=== PATIENT | female | born 1975 | race Asian ===

== ENCOUNTER 2016-11-22 10:53 | Outpatient (CLI) | payer OTHER | END 2016-11-22 23:00 | disposition home or self-care (01) | LOC: RAD 10:53 | DX: M79.671 Pain in right foot (principal); M79.89 Other specified soft tissue disorders ==

== ENCOUNTER 2017-08-19 09:56 | Outpatient (CLI) | payer OTHER | END 2017-08-19 19:03 | disposition home or self-care (01) | LOC: MAMMO 09:56 | DX: Z12.31 Encounter for screening mammogram for malignant neoplasm of breast (principal) ==

== ENCOUNTER 2017-09-27 13:25 | Outpatient (CLI) | payer OTHER | END 2017-09-27 19:12 | disposition home or self-care (01) | LOC: RAD 13:25 | DX: R05 Cough (principal) ==

== ENCOUNTER 2019-08-31 08:47 | Outpatient (CLI) | payer OTHER ==
[2019-08-31 09:18] LABS: POTASSIUM 3.8 mmol/L (3.6-5.2)
[2019-08-31 09:22] LABS: PLATELET COUNT 326 K/uL (152-353)
== END 2019-08-31 22:11 | disposition home or self-care (01) ==
LOC: LABW 08:47
PROVIDERS: Obstetrics & Gynecology Gynecologic Oncology
DX: Z01.811 Encounter for preprocedural respiratory examination (principal); D39.12 Neoplasm of uncertain behavior of left ovary
CPT/HCPCS: 36415; 80048; 85027; 93005

== ENCOUNTER 2019-10-12 11:20 | Emergency (ER) | payer OTHER ==
[~2019-10-12] VITALS: Ht 160 cm; Wt 95.3 kg
[2019-10-12 11:27] VITALS: TEMP 97.9
[2019-10-12 12:27] LABS: PLATELET COUNT 360 K/uL (152-353)
[2019-10-12 12:36] LABS: POTASSIUM 3.7 mmol/L (3.6-5.2)
[2019-10-12 15:32] VITALS: BP 141/90
== END 2019-10-12 15:32 | disposition home or self-care (01) ==
LOC: ED 11:20
PROVIDERS: Family Medicine
DX: N39.0 Urinary tract infection, site not specified (principal); D25.9 Leiomyoma of uterus, unspecified; R10.84 Generalized abdominal pain
CPT/HCPCS: 80053; 81000; 85027; 87086; 87088; 99283

== ENCOUNTER 2020-02-25 13:01 | Outpatient (CLI) | payer OTHER | END 2020-02-25 19:39 | disposition home or self-care (01) | LOC: MAMMO 13:01 | DX: Z12.31 Encounter for screening mammogram for malignant neoplasm of breast (principal) ==

== ENCOUNTER 2020-06-12 09:21 | Outpatient (CLI) | payer OTHER | END 2020-06-12 21:45 | disposition home or self-care (01) | LOC: US 09:21 | DX: R10.31 Right lower quadrant pain (principal) ==

== ENCOUNTER 2021-04-22 14:47 | Outpatient (CLI) | payer OTHER | END 2021-04-22 15:50 | disposition home or self-care (01) | LOC: US 14:47 | PROVIDERS: ATTEND Nurse Practitioner Primary Care | DX: R10.2 Pelvic and perineal pain (principal); R10.30 Lower abdominal pain, unspecified ==

== ENCOUNTER 2021-08-03 10:51 | Outpatient (CLI) | payer OTHER | END 2021-08-03 21:08 | disposition home or self-care (01) | LOC: US 10:51 | PROVIDERS: ATTEND Obstetrics & Gynecology Gynecologic Oncology | DX: D49.59 Neoplasm of unspecified behavior of other genitourinary organ (principal) ==

== ENCOUNTER 2021-08-13 14:25 | Outpatient (CLI) | payer OTHER | END 2021-08-13 20:20 | disposition home or self-care (01) | LOC: LABW 14:25 | PROVIDERS: ATTEND Obstetrics & Gynecology Gynecologic Oncology | DX: D49.59 Neoplasm of unspecified behavior of other genitourinary organ (principal); R97.1 Elevated cancer antigen 125 [CA 125] | CPT/HCPCS: 36415; 86304 ==

== ENCOUNTER 2021-10-05 08:49 | Outpatient (CLI) | payer OTHER | END 2021-10-05 19:17 | disposition home or self-care (01) | LOC: CT 08:49 | PROVIDERS: ATTEND Obstetrics & Gynecology Gynecologic Oncology | DX: C56.2 Malignant neoplasm of left ovary (principal); L02.11 Cutaneous abscess of neck | CPT/HCPCS: 36415; 82565; 84520; Q9963 ==

== ENCOUNTER 2022-02-11 08:58 | Outpatient (CLI) | payer OTHER | END 2022-02-11 21:24 | disposition home or self-care (01) | LOC: US 08:58 | PROVIDERS: ATTEND Nurse Practitioner Primary Care | DX: Z12.31 Encounter for screening mammogram for malignant neoplasm of breast (principal); R10.2 Pelvic and perineal pain ==

== ENCOUNTER 2022-12-15 09:59 | Outpatient (CLI) | payer OTHER ==
[2022-12-15 10:20] LABS: PLATELET COUNT 348 K/uL (152-353)
[2022-12-15 10:41] LABS: POTASSIUM 4.2 mmol/L (3.6-5.2)
== END 2022-12-15 18:56 | disposition home or self-care (01) ==
LOC: LABW 09:59 → CT 11:30 → LABW 18:56
PROVIDERS: ATTEND Nurse Practitioner Family
DX: R10.30 Lower abdominal pain, unspecified (principal)
CPT/HCPCS: 36415; 80053; 81002; 82150; 83690; 85027; Q9963